=== PATIENT | female | born 1945 | race Caucasian/White ===

== ENCOUNTER → 2017-03-23 | Day surgery (SDC) | payer MEDICARE | END | disposition home or self-care (01) | LOC: SDCH 07:56 | DX: Z12.11 Encounter for screening for malignant neoplasm of colon (principal); K62.0 Anal polyp; K57.30 Diverticulosis of large intestine without perforation or abscess without bleeding; M19.90 Unspecified osteoarthritis, unspecified site; Z87.01 Personal history of pneumonia (recurrent); Z79.899 Other long term (current) drug therapy; Z98.890 Other specified postprocedural states | CPT/HCPCS: J2704 ==